=== PATIENT | male | born 1970 | race Caucasian/White ===

== ENCOUNTER → 2022-04-03 09:52 | Outpatient (CLI) | payer BC, SELFPAY ==
[2022-04-03 10:23] LABS: Basophils # 0.1 K/mm3 (0-0.2); Basophils % 0.6 % (0.1-2.0); Eosinophils # 0.2 K/mm3 (0.0-0.4); Eosinophils % 2.5 % (0.1-12.0); Hematocrit 46.4 % (42.0-52.0); Hemoglobin 15.9 g/dL (14.1-18.0); Lymphocytes # 1.5 K/mm3 (0.7-4.5); Lymphocytes % 19.1 % (10-50); Mean Corpuscular HGB Conc 34.2 g/dL (31.8-35.4); Mean Corpuscular Hemoglobin 34.3 pg (27.0-31.2); Mean Corpuscular Volume 100.1 fl (80-94); Mean Platelet Volume 9.4 fl (7.4-10.4); Monocytes # 0.5 K/mm3 (0.1-1.0); Monocytes % 6.1 % (1.7-9.3); Neutrophils # 5.5 K/mm3 (1.8-7.8); Neutrophils % 71.7 % (37.0-80.0); Platelet Count 188 K/mm3 (142-424); Red Blood Count 4.63 M/mm3 (4.60-6.20); White Blood Count 7.6 K/mm3 (4.8-10.8)
[2022-04-03 10:33] LABS: Chloride 102 mmol/L (98-107)
[2022-04-03 10:34] LABS: Potassium 4.5 mmoL/L (3.5-5.1); Sodium 138 mmol/L (136-145)
[2022-04-03 10:36] LABS: Alanine Aminotransferase 49 U/L (12-78); Aspartate Amino Transferase 53 U/L (17-59); Blood Urea Nitrogen 11 mg/dl (9-20); Estimated Glomerular Filt Rate 102 ml/min (>60); GFR (African American) 123 ML/MIN (>60)
[2022-04-03 10:37] LABS: Albumin/Globulin Ratio 1.4 (1.1-1.8); Alkaline Phosphatase 85 U/L (38-126); Anion Gap 10.5 mEq/L (5-15); Calcium 9.6 mg/dl (8.4-10.2); Carbon Dioxide 30 mmol/L (22.0-30.0); Globulin 2.9 g/dL (1.3-3.2); Glucose 116 mg/dl (74-100); Total Protein,Serum 6.9 g/dl (6.3-8.2)
[2022-04-03 10:43] LABS: C-Reactive Protein 10.8 mg/L (0-4)
[2022-04-03 10:48] LABS: Erythrocyte Sedimentation Rate 14 mm/hr (0-20)
== END ==
PROVIDERS: PCP Family Medicine; Visit Provider Podiatrist
DX: L84 Corns and callosities (principal)
CPT/HCPCS: 36415; 80053; 85025; 85651; 86140

== ENCOUNTER → 2022-04-10 10:38 | Outpatient (CLI) | payer BC, SELFPAY ==
--- NOTE | 2022-04-10 10:42 | XR_ITS ---
FINAL REPORT CLINICAL HISTORY: Wound on side of foot, pain FINDINGS: RIGHT FOOT: Three views of the right foot were obtained. There is no acute fracture or dislocation. There is no bony erosion. There are mild degenerative changes. There is no soft tissue abnormality. IMPRESSION: No acute bony abnormality. Reviewed, Interpreted and Dictated by Jovi Castillo III, MD Transcribed by Marisol Yanez Authenticated and [facility]
== END ==
PROVIDERS: PCP Family Medicine; Visit Provider Podiatrist
DX: Z51.89 Encounter for other specified aftercare (principal); S91.301D Unspecified open wound, right foot, subsequent encounter
CPT/HCPCS: 73630

== ENCOUNTER → 2022-07-09 09:37 | Outpatient (CLI) | payer BC, SELFPAY ==
--- NOTE | 2022-07-09 09:41 | XR_ITS ---
FINAL REPORT CLINICAL HISTORY: Right foot pain, callus on lateral side of foot that keeps opening up and getting infected COMPARISON: April 10, 2022 FINDINGS: 3 views of the right foot were obtained. There is no acute fracture or dislocation. There is abnormal flattening, sclerosis and hypertrophic change at the 2nd and 3rd MTP joints that may be due to old trauma. Avascular necrosis is felt less likely. There is an accessory navicular. Soft tissues are unremarkable. IMPRESSION: Abnormal flattening, sclerosis and hypertrophic change at the 2nd and 3rd MTP joints that may be due to old trauma. Reviewed, Interpreted and Dictated by James Mendez MD Transcribed by Gm Murillo Authenticated and [facility]
[2022-07-09 10:24] LABS: Basophils # 0.1 K/mm3 (0-0.2); Basophils % 1.2 % (0.1-2.0); Eosinophils # 0.2 K/mm3 (0.0-0.4); Eosinophils % 3.2 % (0.1-12.0); Hematocrit 48.1 % (42.0-52.0); Hemoglobin 15.4 g/dL (14.1-18.0); Lymphocytes # 1.2 K/mm3 (0.7-4.5); Lymphocytes % 21.9 % (10-50); Mean Corpuscular HGB Conc 32.1 g/dL (31.8-35.4); Mean Corpuscular Hemoglobin 32.6 pg (27.0-31.2); Mean Corpuscular Volume 101.7 fl (80-94); Mean Platelet Volume 9.5 fl (7.4-10.4); Monocytes # 0.4 K/mm3 (0.1-1.0); Neutrophils # 3.7 K/mm3 (1.8-7.8); Neutrophils % 66.7 % (37.0-80.0); Platelet Count 259 K/mm3 (142-424); Red Blood Count 4.73 M/mm3 (4.60-6.20); Red Cell Distribution Width 12.2 % (11.5-17.5); White Blood Count 5.6 K/mm3 (4.8-10.8)
[2022-07-09 11:26] LABS: Chloride 99 mmol/L (98-107)
[2022-07-09 11:27] LABS: Potassium 4.3 mmoL/L (3.5-5.1); Sodium 140 mmol/L (136-145)
[2022-07-09 11:29] LABS: Alanine Aminotransferase 49 U/L (12-78); Alkaline Phosphatase 64 U/L (38-126); Aspartate Amino Transferase 49 U/L (17-59); Bilirubin,Total 0.7 mg/dl (0.2-1.3); Blood Urea Nitrogen 12 mg/dl (9-20); Estimated Glomerular Filt Rate 89 ml/min (>60); GFR (African American) 107 ML/MIN (>60)
[2022-07-09 11:30] LABS: Albumin Level 4.3 g/dl (3.5-5.0); Albumin/Globulin Ratio 1.6 (1.1-1.8); Anion Gap 13.3 mEq/L (5-15); Calcium 9.2 mg/dl (8.4-10.2); Carbon Dioxide 32 mmol/L (22.0-30.0); Globulin 2.7 g/dL (1.3-3.2); Glucose 94 mg/dl (74-100)
[2022-07-09 11:35] LABS: C-Reactive Protein 7.5 mg/L (0-4)
[2022-07-09 11:50] LABS: Erythrocyte Sedimentation Rate 37 mm/hr (0-20)
== END ==
PROVIDERS: PCP Family Medicine; Visit Provider Podiatrist
DX: M79.671 Pain in right foot (principal); L84 Corns and callosities; Z51.89 Encounter for other specified aftercare
CPT/HCPCS: 36415; 73630; 80053; 85025; 85651; 86140

== ENCOUNTER → 2022-09-24 06:01 | Outpatient (CLI) | payer BC, SELFPAY | PROVIDERS: Visit Provider Podiatrist | DX: L97.512 Non-pressure chronic ulcer of other part of right foot with fat layer exposed (principal); B96.89 Other specified bacterial agents as the cause of diseases classified elsewhere | CPT/HCPCS: 87070; 87077; 87186; 87205 ==

== ENCOUNTER → 2022-10-04 10:30 | Outpatient (CLI) | payer BC, SELFPAY ==
--- NOTE | 2022-10-04 10:30 | MR_ITS ---
FINAL REPORT CLINICAL HISTORY: ulcer/wound of right foot. Sore at base of 5th toe on plantar surface. intermittent [id number]. 28ml prohance given. FINDINGS: Multiplanar MR imaging of the right foot was performed with and without contrast. Abnormal signal is seen in the medial sesamoid of the great toe with contrast-enhancement. This may represent sesamoiditis or fracture. Bone marrow edema is seen involving the proximal fourth and fifth metatarsals without a well-defined fracture line identified. This is of uncertain etiology. Mild degenerative changes are noted. Foci of abnormal signal are seen involving the distal aspect of the second and third metatarsal heads which may represent degenerative change or small areas of osteonecrosis. No area of marrow replacement is identified to suggest osteomyelitis. On the postcontrast images, mild contrast enhancement is noted of the soft tissues of the medial and lateral plantar forefoot likely representing inflammatory change. No soft tissue mass is identified. IMPRESSION: No MR evidence of osteomyelitis. Foci of abnormal signal in the distal second and third metatarsal heads which may represent degenerative changes or small foci of osteonecrosis. Nonspecific bone marrow edema in the proximal fourth and fifth metatarsals may be reactive. Abnormal signal and contrast enhancement in the medial sesamoid of the great toe, consistent with sesamoiditis or a subacute fracture. Mild soft tissue contrast-enhancement of the medial and lateral forefoot, favor inflammatory change. Authenticated and [facility]
== END ==
PROVIDERS: Visit Provider Podiatrist
DX: L03.115 Cellulitis of right lower limb (principal); L97.512 Non-pressure chronic ulcer of other part of right foot with fat layer exposed; S91.301S Unspecified open wound, right foot, sequela
CPT/HCPCS: 73720; A9576

== ENCOUNTER → 2023-08-13 23:17 | Outpatient (CLI) | payer BC, SELFPAY | PROVIDERS: PCP Family Medicine; Visit Provider Podiatrist | DX: S91.301A Unspecified open wound, right foot, initial encounter (principal); B96.89 Other specified bacterial agents as the cause of diseases classified elsewhere | CPT/HCPCS: 87070; 87205 ==

== ENCOUNTER → 2023-08-14 08:48 | Outpatient (CLI) | payer BC, SELFPAY ==
--- NOTE | 2023-08-14 09:13 | XR_ITS ---
FINAL REPORT CLINICAL HISTORY: wound on right foot, foot pain COMPARISON: None FINDINGS: RIGHT FOOT: Three views of the right foot were obtained. Mild and moderate degenerative changes present. There is flattening of the heads of the second and third metatarsals, that may represent either degenerative change or the sequela of chronic osteonecrosis. Small calcaneal spurs are present. Pes planus is noted. There is suspected erosion of the medial head of the fifth metatarsal with osteopenia involving the fifth metatarsal head and proximal phalanx. This appearance is suspicious for osteomyelitis which cannot be excluded, would recommend either follow-up films or MRI for further evaluation. There is no acute fracture or dislocation. The joint spaces are intact. There is no soft tissue abnormality. IMPRESSION: Flattening of the heads of the second and third metatarsals, that may be degenerative or may be the sequela of chronic osteonecrosis. There is suspected erosion of the medial aspect of the head of the fifth metatarsal with associated osteopenia in the distal fifth metatarsal and the fifth metatarsal head. The appearance is worrisome for osteomyelitis, and would recommend either follow-up films or MRI for further evaluation. Mild and moderate degenerative changes in the foot. Reviewed, Interpreted and Dictated by Jovi Castillo III, MD Transcribed by Donna Cleveland Authenticated and [facility]
[2023-08-14 09:17] LABS: Basophils % 0.5 % (0.1-2.0); Eosinophils # 0.2 K/mm3 (0.0-0.4); Hematocrit 43.2 % (42.0-52.0); Lymphocytes # 1.2 K/mm3 (0.7-4.5); Lymphocytes % 18.2 % (10-50); Mean Corpuscular HGB Conc 34.8 g/dL (31.8-35.4); Mean Corpuscular Hemoglobin 32.4 pg (27.0-31.2); Mean Corpuscular Volume 93.1 fl (80-94); Mean Platelet Volume 9.9 fl (7.4-10.4); Monocytes # 0.4 K/mm3 (0.1-1.0); Monocytes % 5.9 % (1.7-9.3); Neutrophils # 4.9 K/mm3 (1.8-7.8); Neutrophils % 72.3 % (37.0-80.0); Platelet Count 172 K/mm3 (142-424); Red Blood Count 4.64 M/mm3 (4.60-6.20); White Blood Count 6.8 K/mm3 (4.8-10.8)
[2023-08-14 09:43] LABS: Alanine Aminotransferase 22 U/L (12-78); Albumin Level 4.1 g/dl (3.5-5.0); Albumin/Globulin Ratio 1.5 (1.1-1.8); Alkaline Phosphatase 62 U/L (38-126); Anion Gap 12.1 mEq/L (5-15); Aspartate Amino Transferase 24 U/L (17-59); Blood Urea Nitrogen 11 mg/dl (9-20); Carbon Dioxide 30 mmol/L (22.0-30.0); Chloride 101 mmol/L (98-107); Estimated Glomerular Filt Rate 118 ml/min (>60); GFR (African American) 143 ML/MIN (>60); Globulin 2.8 g/dL (1.3-3.2); Glucose 101 mg/dl (74-100); Potassium 4.1 mmoL/L (3.5-5.1); Sodium 139 mmol/L (136-145); Total Protein,Serum 6.9 g/dl (6.3-8.2)
[2023-08-14 09:48] LABS: C-Reactive Protein 15.3 mg/L (0-4)
[2023-08-14 09:57] LABS: Erythrocyte Sedimentation Rate 22 mm/hr (0-20)
[2023-08-14 10:30] LABS: Vitamin B12 322 pg/mL (239-931)
== END ==
LOC: LAB 08:49
PROVIDERS: Podiatrist; PCP Family Medicine; Visit Provider Orthopaedic Surgery
DX: S91.301A Unspecified open wound, right foot, initial encounter (principal); M79.671 Pain in right foot; Z86.69 Personal history of other diseases of the nervous system and sense organs; F10.21 Alcohol dependence, in remission
CPT/HCPCS: 36415; 73630; 80053; 82607; 85025; 85651; 86140

== ENCOUNTER → 2023-08-22 13:43 | Outpatient (CLI) | payer BC, SELFPAY ==
--- NOTE | 2023-08-22 13:48 | MR_ITS ---
FINAL REPORT CLINICAL HISTORY: wound, r/o Osteomyelitis underneath the base of the 5th metatarsal. FINDINGS: Multiplanar MR imaging of the right foot was performed without contrast. Mild and moderate degenerative changes are noted. There is a mild hallux valgus deformity. No fracture is identified. Persistent bone marrow edema is seen in the medial sesamoid of the great toe with probable cysts in this region. There has been interval worsening of chronic deformity involving the second and third metatarsal heads. No ligamentous injury is identified. The musculature is intact. The plantar aponeurosis is intact. No soft tissue mass or cyst is identified. IMPRESSION: No MR evidence of osteomyelitis. Progressive chronic deformity of the second and third metatarsal heads. Persistent abnormal signal in the medial sesamoid of the great toe with several cysts in this region. Authenticated and [facility]
== END ==
LOC: RAD 13:44
PROVIDERS: PCP Family Medicine; Visit Provider Podiatrist
DX: M79.671 Pain in right foot (principal); L97.519 Non-pressure chronic ulcer of other part of right foot with unspecified severity; S91.301A Unspecified open wound, right foot, initial encounter
CPT/HCPCS: 73718